=== PATIENT | female | born 1985 | race African-American/Black ===

== ENCOUNTER 2017-12-12 12:17 | Inpatient (IN) | payer OTHER ==
[~2017-12-12] VITALS: Ht 160 cm; Wt 70.3 kg
--- NOTE | 2017-12-12 12:28 | Emergency Room Report ---
History of Present Illness General Chief Complaint: Skin Rash/Abscess Source: Patient Present Illness HPI 32-year-old female presents to the emergency department complaining of multiple abscess in the bilateral groin area off and on for several months and is not responsive to multiple oral antibiotic treatments. Patient states that at one point her kidneys had decline in function due to taking Bactrim. Patient is here for surgical removal of hidradenitis lesions. Patient denies pain at this time she denies fevers, chills, nausea, vomiting, abdominal pain or . Other than transient decrease in kidney function in the past patient has no other significant past medical history. She is not currently taking blood thinning medications. Denies CP, Palpitations, LOC, AMS, dizziness, Changes in Vision, Sensation, paresthesias, or a sudden severe headache. Allergies: Coded Allergies: MORPHINE (Verified Allergy, Unknown, 12/12/17) VANCOMYCIN (Verified Allergy, Unknown, Itching, 12/12/17) Uncoded Allergies: TAPE (Allergy, Unknown, 12/12/17) Patient History Past Medical History: see triage record Past Surgical History: none Pertinent Family History: none Immunizations: UTD Reviewed Nursing Documentation: PMH: Agreed, PSxH: Agreed Nursing Documentation-PMH Past Medical History: No Stated History Review of Systems All Other Systems: negative except mentioned in HPI Physical Exam Vital Signs Date Time Temp Pulse Resp B/P (MAP) Pulse Ox O2 Delivery O2 Flow Rate FiO2 12/12/17 12:23 98.5 83 20 103/70 99 Room Air 98.4 Sp02 EP Interpretation: reviewed, normal General Appearance: no apparent distress, alert, GCS 15, non-toxic Head: normocephalic, atraumatic ENT: hearing grossly normal, normal voice Neck: full range of motion Respiratory: lungs clear, normal breath sounds, speaking full sentences Cardiovascular #1: regular rate, rhythm Gastrointestinal: non tender, soft Musculoskeletal: back normal, gait/station normal, normal range of motion, non- tender Neurologic: alert, oriented x3, responsive, motor strength/tone normal, sensory intact, speech normal, grossly normal Psychiatric: judgement/insight normal Skin: normal color, warm/dry, well hydrated, other - multiple swollen and infected ST lesions in the groin area in close proximity, no LAD. no surrounding erythema. Medical Decision Making PA Attestation Dr. Rebolledo is my supervising Physician whom patient management has been discussed with. Diagnostic Impression: Primary Impression: Hidradenitis suppurativa ER Course 32-year-old female presents to the emergency department complaining of multiple abscess in the bilateral groin area off and on for several months and is not responsive to multiple oral antibiotic treatments. Patient states that at one point her kidneys had decline in function due to taking Bactrim. Patient is here for surgical removal of hidradenitis lesions. Patient denies pain at this time she denies fevers, chills, nausea, vomiting, abdominal pain or . Other than transient decrease in kidney function in the past patient has no other significant past medical history. She is not currently taking blood thinning medications. Denies CP, Palpitations, LOC, AMS, dizziness, Changes in Vision, Sensation, paresthesias, or a sudden severe headache. Ddx considered but are not limited to cellulitis, hydradenitis Suppurativa, fracture, d/L, gout, abscess Vital signs: are WNL, pt. is afebrile H&PE are most consistent with bilateral groin hydradenitis Suppurativa requiring direct admission for surgical or IV abx management ORDERS: -Gen. preop labwork: CBC, CMP, PT/PTT, Type and Screen. : Preoperative lab work including coag panel was unremarkable and within normal limits kidney function is fine. pt. is B + - EK bpm normal sinus rhythm, no acute ST changes. ED INTERVENTIONS: -1 L IV normal saline bolus. -1250mg vancomycin IV DISPOSITION: at this time pt. will be admitted to Dr. Carlin on behalf of Dr. Carlin for hydradenitis Suppurativa. Dr. Carlin agreed to admit the pt. and to continue pt. care management. Labs Test 12/12/17 12:30 12/12/17 13:20 12/12/17 14:10 Urine Color Pale yellow Urine Appearance Clear Urine pH 7 (4.5-8.0) Urine Specific [place] 1.005 (1.005-1.035) Urine Protein Negative (NEGATIVE) Urine Glucose (UA) Negative (NEGATIVE) Urine Ketones Negative (NEGATIVE) Urine Occult Blood 5+ (NEGATIVE) Urine Nitrite Negative (NEGATIVE) Urine Bilirubin Negative (NEGATIVE) Urine Urobilinogen Normal MG/DL (0.0-1.0) Urine Leukocyte Esterase Negative (NEGATIVE) Urine RBC 5-10 /HPF (0 - 2) Urine WBC 0-2 /HPF (0 - 2) Urine Squamous Epithelial Cells Few /LPF (NONE/OCC) Urine Bacteria Few /HPF (NONE) Urine HCG, Qualitative Negative (NEGATIVE) White Blood Count 7.7 K/UL (4.8-10.8) Red Blood Count 4.71 M/UL (4.20-5.40) Hemoglobin 13.8 G/DL (12.0-16.0) Hematocrit 41.2 % (37.0-47.0) Mean Corpuscular Volume 87 FL (80-99) Mean Corpuscular Hemoglobin 29.3 PG (27.0-31.0) Mean Corpuscular Hemoglobin Concent 33.6 G/DL (32.0-36.0) Red Cell Distribution Width 11.9 % (11.6-14.8) Platelet Count 304 K/UL (150-450) Mean Platelet Volume 5.9 FL (6.5-10.1) Neutrophils (%) (Auto) 59.2 % (45.0-75.0) Lymphocytes (%) (Auto) 34.6 % (20.0-45.0) Monocytes (%) (Auto) 5.2 % (1.0-10.0) Eosinophils (%) (Auto) 0.4 % (0.0-3.0) Basophils (%) (Auto) 0.6 % (0.0-2.0) Sodium Level 138 MMOL/L (136-145) Potassium Level 3.4 MMOL/L (3.5-5.1) Chloride Level 102 MMOL/L (98-107) Carbon Dioxide Level 30 MMOL/L (21-32) Anion Gap 6 mmol/L (5-15) Blood Urea Nitrogen 11 mg/dL (7-18) Creatinine 0.6 MG/DL (0.55-1.30) Estimat Glomerular Filtration Rate > 60 mL/min (>60) Glucose Level 82 MG/DL (74-106) Calcium Level 9.1 MG/DL (8.5-10.1) Total Bilirubin 0.2 MG/DL (0.2-1.0) Aspartate Amino Transf (AST/SGOT) 14 U/L (15-37) Alanine Aminotransferase (ALT/SGPT) 20 U/L (12-78) Alkaline Phosphatase 72 U/L (46-116) Total Protein 7.6 G/DL (6.4-8.2) Albumin 3.5 G/DL (3.4-5.0) Globulin 4.1 g/dL Albumin/Globulin Ratio 0.9 (1.0-2.7) Prothrombin Time 10.5 SEC (9.30-11.50) Prothromb Time International Ratio 1.0 (0.9-1.1) Activated Partial Thromboplast Time 25 SEC (23-33) EKG Diagnostic Results Rate: normal - 60 Rhythm: NSR ST Segments: no acute changes ASA given to the pt in ED: No PA Scribe Text This Interpretation was scribed by SOPHIA Mccord. Last Vital Signs Date Time Temp Pulse Resp B/P (MAP) Pulse Ox O2 Delivery O2 Flow Rate FiO2 12/12/17 12:23 98.5 83 20 103/70 99 Room Air 98.4 Disposition: ADMITTED INPATIENT Condition: Serious Delmi Mccord Dec 12, 2017 12:28
[2017-12-12 12:48] LABS: APPEARANCE,URINE CLEAR; BILIRUBIN, URINE NEGATIVE (NEGATIVE); COLOR,URINE PALE YELLOW; GLUCOSE, URINE (UA) NEGATIVE (NEGATIVE); KETONES,URINE NEGATIVE (NEGATIVE); LEUKOCYTE ESTERASE ,URINE NEGATIVE (NEGATIVE); NITRITE,URINE NEGATIVE (NEGATIVE); PH,URINE 7 (4.5-8.0); PROTEIN,URINE NEGATIVE (NEGATIVE); UROBILINOGEN,URINE NORMAL MG/DL (0.0-1.0)
[2017-12-12 13:42] LABS: BASOPHILS % (AUTO) 0.6 % (0.0-2.0); EOSINOPHILS % (AUTO) 0.4 % (0.0-3.0); HEMATOCRIT 41.2 % (37.0-47.0); HEMOGLOBIN 13.8 G/DL (12.0-16.0); LYMPHOCYTES % (AUTO) 34.6 % (20.0-45.0); MEAN CORPUSCULAR VOLUME 87 FL (80-99); MONOCYTES % (AUTO) 5.2 % (1.0-10.0); NEUTROPHILS % (AUTO) 59.2 % (45.0-75.0); PLATELET COUNT 304 K/UL (150-450); RED BLOOD COUNT 4.71 M/UL (4.20-5.40); RED CELL DISTRIBUTION WIDTH 11.9 % (11.6-14.8); WHITE BLOOD COUNT 7.7 K/UL (4.8-10.8)
[2017-12-12 13:44] VITALS: BP 103/70
[2017-12-12] MEDS ORDERED: Miralax 17gm pkt ORAL PRN (13:45)
[2017-12-12] MEDS ORDERED: Zolpidem 5mg tab ORAL PRN (13:45)
[2017-12-12] MEDS ORDERED: NKM (13:45)
[2017-12-12 13:52] LABS: ANION GAP 6 mmol/L (5-15); BLOOD UREA NITROGEN 11 mg/dL (7-18); CALCIUM 9.1 MG/DL (8.5-10.1); CARBON DIOXIDE 30 MMOL/L (21-32); CHLORIDE 102 MMOL/L (98-107); CREATININE 0.6 MG/DL (0.55-1.30); POTASSIUM 3.4 MMOL/L (3.5-5.1); SODIUM 138 MMOL/L (136-145)
[2017-12-12 13:57] LABS: ALANINE AMINOTRANSFERASE 20 U/L (12-78); ALBUMIN 3.5 G/DL (3.4-5.0); ALBUMIN/GLOBULIN RATIO 0.9 (1.0-2.7); ALKALINE PHOSPHATASE 72 U/L (46-116); ASPARTATE AMINO TRANSFERASE 14 U/L (15-37); BILIRUBIN,TOTAL 0.2 MG/DL (0.2-1.0)
[2017-12-12] MEDS ORDERED: Vancomycin 1250mg/D5W 250ml 250 ML IVPB SCH (15:00)
[2017-12-12] MEDS ORDERED: DiphenhydrAMINE 50mg/ml Inj IVP ONE (16:15)
[2017-12-12 16:17] VITALS: BP 108/72
--- NOTE | 2017-12-12 16:28 | History and Physical ---
History of Present Illness General Date patient seen: Dec 12, 2017 Time patient seen: 16:28 Reason for Hospitalization: Abscess Present Illness HPI 32y/o female with pmh of hidradenitis suppurative who presents with b/l groin swelling/pain/redness/drainage. Pt states she has had symptoms off and on for many months but recently worsening. She has tried antibiotics without much success. She has had surgery of axillary area before which did help. Denies f/c , n/v, d/c, chest pain, SOB. At baseline pt able to ambulate several blocks and climb at least a flight of stairs. Allergies: Coded Allergies: MORPHINE (Verified Allergy, Unknown, 12/12/17) VANCOMYCIN (Verified Allergy, Unknown, Itching, 12/12/17) Uncoded Allergies: TAPE (Allergy, Unknown, 12/12/17) Medication History Scheduled No Known Medications* (NKM - No Known Medications*), 0 ., (Reported) Patient History History Provided By: Patient, Family Member, Medical Record Healthcare decision maker Resuscitation status Advanced Directive on File Past Medical/Surgical History Past Medical/Surgical History: (1) Gastric sleeve (2) Hidradenitis suppurativa (3) C-secion Family History Family History: Type 2 diabetes mellitus Social History Social History: (1) No significant social history Review of Systems Constitutional: Reports: no symptoms Eye: Reports: no symptoms ENT: Reports: no symptoms Respiratory: Reports: no symptoms Cardiovascular: Reports: no symptoms Gastrointestinal: Reports: no symptoms Genitourinary: Reports: no symptoms Musculoskeletal: Reports: no symptoms Skin: Reports: lesions Psychiatric: Reports: no symptoms Neurological: Reports: no symptoms Endocrine: Reports: no symptoms Hematologic/Lymphatic: Reports: no symptoms Physical Exam Physical Exam Narrative General: alert, cooperative, no distress, appears stated age Head: normocephalic, without obvious abnormality, atraumatic Eyes: conjunctivae/corneas clear. PERRL, EOM's intact Throat: lips, mucosa, and tongue normal. MMM Neck: supple, symmetrical, trachea midline, and no JVD Lungs: clear to auscultation bilaterally Heart: regular rate and rhythm, S1, S2 normal, no murmur, click, rub or gallop Abdomen: soft, non-tender, non-distended, bowel sounds normal Extremities: extremities normal, atraumatic, no cyanosis or edema Pulses: 2+ and symmetric Skin: +b/l groin lesions w/ edema/TTP/warmth/erythema/drainage Neurologic: grossly normal, no focal deficits Last 24 Hour Vital Signs Date Time Temp Pulse Resp B/P (MAP) Pulse Ox O2 Delivery O2 Flow Rate FiO2 12/12/17 16:17 98.4 69 17 108/72 99 Room Air 98.4 12/12/17 13:44 98.4 67 20 103/70 99 Room Air 98.4 12/12/17 12:23 98.5 83 20 103/70 99 Room Air 98.4 Laboratory Tests Test 12/12/17 12:30 12/12/17 13:20 12/12/17 14:10 Urine Color Pale yellow Urine Appearance Clear Urine pH 7 (4.5-8.0) Urine Specific [place] 1.005 (1.005-1.035) Urine Protein Negative (NEGATIVE) Urine Glucose (UA) Negative (NEGATIVE) Urine Ketones Negative (NEGATIVE) Urine Occult Blood 5+ (NEGATIVE) H Urine Nitrite Negative (NEGATIVE) Urine Bilirubin Negative (NEGATIVE) Urine Urobilinogen Normal MG/DL (0.0-1.0) Urine Leukocyte Esterase Negative (NEGATIVE) Urine RBC 5-10 /HPF (0 - 2) H Urine WBC 0-2 /HPF (0 - 2) Urine Squamous Epithelial Cells Few /LPF (NONE/OCC) Urine Bacteria Few /HPF (NONE) Urine HCG, Qualitative Negative (NEGATIVE) White Blood Count 7.7 K/UL (4.8-10.8) Red Blood Count 4.71 M/UL (4.20-5.40) Hemoglobin 13.8 G/DL (12.0-16.0) Hematocrit 41.2 % (37.0-47.0) Mean Corpuscular Volume 87 FL (80-99) Mean Corpuscular Hemoglobin 29.3 PG (27.0-31.0) Mean Corpuscular Hemoglobin Concent 33.6 G/DL (32.0-36.0) Red Cell Distribution Width 11.9 % (11.6-14.8) Platelet Count 304 K/UL (150-450) Mean Platelet Volume 5.9 FL (6.5-10.1) L Neutrophils (%) (Auto) 59.2 % (45.0-75.0) Lymphocytes (%) (Auto) 34.6 % (20.0-45.0) Monocytes (%) (Auto) 5.2 % (1.0-10.0) Eosinophils (%) (Auto) 0.4 % (0.0-3.0) Basophils (%) (Auto) 0.6 % (0.0-2.0) Sodium Level 138 MMOL/L (136-145) Potassium Level 3.4 MMOL/L (3.5-5.1) L Chloride Level 102 MMOL/L (98-107) Carbon Dioxide Level 30 MMOL/L (21-32) Anion Gap 6 mmol/L (5-15) Blood Urea Nitrogen 11 mg/dL (7-18) Creatinine 0.6 MG/DL (0.55-1.30) Estimat Glomerular Filtration Rate > 60 mL/min (>60) Glucose Level 82 MG/DL (74-106) Calcium Level 9.1 MG/DL (8.5-10.1) Total Bilirubin 0.2 MG/DL (0.2-1.0) Aspartate Amino Transf (AST/SGOT) 14 U/L (15-37) L Alanine Aminotransferase (ALT/SGPT) 20 U/L (12-78) Alkaline Phosphatase 72 U/L (46-116) Total Protein 7.6 G/DL (6.4-8.2) Albumin 3.5 G/DL (3.4-5.0) Globulin 4.1 g/dL Albumin/Globulin Ratio 0.9 (1.0-2.7) L Prothrombin Time 10.5 SEC (9.30-11.50) Prothromb Time International Ratio 1.0 (0.9-1.1) Activated Partial Thromboplast Time 25 SEC (23-33) Height (Feet): 5 Height (Inches): 3.00 Weight (Pounds): 155 Medications Current Medications Medications (Trade) Dose Ordered Sig/Cait Route PRN Reason Start Time Stop Time Status Last Admin Dose Admin Acetaminophen (Tylenol) 650 mg Q4H PRN ORAL Mild Pain (Pain Scale 1-3) 12/12/17 13:45 01/11/18 13:44 Acetaminophen (Tylenol) 650 mg Q4H PRN ORAL fever 12/12/17 13:45 01/11/18 13:44 Bisacodyl (Dulcolax) 10 mg HSPRN PRN RECTAL Constipation 12/12/17 13:45 01/11/18 13:44 Dextrose (Dextrose 50%) STAT PRN IV Hypoglycemia 12/12/17 13:45 01/11/18 13:44 Dextrose/Sodium Chloride 1,000 ml @ 75 mls/hr [id number] IV 12/13/17 14:00 01/12/18 13:59 Diphenhydramine HCl (Benadryl) 25 mg Q6H PRN ORAL Itching/Pruritis 12/12/17 13:45 01/11/18 13:44 Docusate Sodium (Colace) 100 mg EVERY 12 HOURS ORAL 12/12/17 21:00 01/11/18 20:59 Ondansetron HCl (Zofran) 4 mg Q6H PRN IVP Nausea & Vomiting 12/12/17 13:45 01/11/18 13:44 Polyethylene Glycol (Miralax) 17 gm HSPRN PRN ORAL Constipation 12/12/17 13:45 01/11/18 13:44 Vancomycin HCl/ Dextrose 250 ml @ 166.667 mls/hr Q24H IVPB 12/12/17 15:00 12/17/17 14:59 12/12/17 15:13 Zolpidem Tartrate (Ambien) 5 mg HSPRN PRN ORAL Insomnia 12/12/17 13:45 12/19/17 13:44 Objective Narrative EKG and CXR wnl Assessment/Plan Problem List: (1) Abscess Assessment & Plan: of groin ICD Codes: L02.91 - Cutaneous abscess, unspecified SNOMED: 707594029 (2) Hidradenitis suppurativa ICD Codes: L73.2 - Hidradenitis suppurativa SNOMED: [id number] Status: stable Assessment/Plan Admit inpt Plastic surgery consulted Empiric IV antibiotics IVFs Wound care Pain control, bowel regimen Supportive care If patient is required to have surgery, based on the patient's medical history, and other available ancillary data, the patient is a LOW risk for an INTERMEDIATE risk procedure. Per the most recent ACC/AHA guidelines, the patient does not need any further cardiopulmonary testing prior to the procedure and there do not appear to be any clear medical contraindications to proceeding with the proposed procedure. DVT ppx: SCDs FULL CODE D/w pt/family, RN, surgery regarding mgmt and dispo Anthony Lopez M.D. Dec 12, 2017 16:28
[2017-12-12] MEDS ORDERED: LORazepam 0.5mg tab ORAL PRN (16:45)
[2017-12-12] MEDS ORDERED: LORazepam Inj 2mg/ml 1ml IV PRN (16:45)
[2017-12-12] MEDS: ceFAZolin sod 1 GM in NS 55 ML IVPB SCH (18:28)
[2017-12-12] MEDS: D5 1/2NS w/KCl 20mEq 1,000 ML IV SCH (18:29)
[2017-12-12 20:00] VITALS: BP 89/64
[2017-12-12] MEDS: Docusate 100mg cap ORAL SCH (21:24)
[2017-12-12] MEDS ORDERED: ceFAZolin 1gm/50ml Premix 50 ML IV SCH (22:00)
[2017-12-13] VITALS (15 sets, daily range): BP systolic 95–121; BP diastolic 56–70
[2017-12-13] MEDS: ceFAZolin sod 1 GM in NS 55 ML IVPB SCH ×3 (02:10→17:53)
[2017-12-13] MEDS: Docusate 100mg cap ORAL SCH ×2 (08:13→17:53)
[2017-12-13] MEDS: D5 1/2NS w/KCl 20mEq 1,000 ML IV SCH (11:32)
--- NOTE | 2017-12-13 11:48 | Pre-Procedure Note/Attestation ---
Pre-Procedure Note/Attestation Complete Prior to Procedure Planned Procedure: bilateral Procedure Narrative: Bilateral vulvar debridement and reconstruction Attestation I attest that I discussed the nature of the procedure; its benefits; risks and complications; and alternatives (and the risks and benefits of such alternatives ), prior to the procedure, with the patient (or the patient's legal guest service representative). I attest that, if there was a reasonable possibility of needing a blood transfusion, the patient (or the patient's legal guest service representative) was given the [facility] standardized written summary, pursuant to the [place] Blood Safety Act ([place] Health and Safety Code # 1645, as amended). I attest that I re-evaluated the patient just prior to the surgery and that there has been no change in the patient's H&P, except as documented below: BERNARDA AVALOS Dec 13, 2017 11:47
[2017-12-13] MEDS ORDERED: Bacitracin 50000 Units Vial ONE (11:57)
[2017-12-13] MEDS ORDERED: Propofol 200mg/20ml IV ONE (11:57)
[2017-12-13] MEDS ORDERED: PCA HYDROmorphone 1mg/ml 30 ML IV PRN (12:00)
[2017-12-13] MEDS ORDERED: Zolpidem 5mg tab ORAL PRN (12:00)
[2017-12-13] MEDS ORDERED: Rate Change PCA 1 Each MISC PRN (12:00)
[2017-12-13] MEDS ORDERED: Lidocaine 1% 10mg/ml/Epi 0.005mg/ml 30ml vial INJ ONE (13:00)
[2017-12-13] MEDS ORDERED: LR 1000ml 1,000 ML IVLG SCH (13:08)
--- NOTE | 2017-12-13 13:08 | Anethesia Preoperative Eval ---
Anesthesia Pre-op PMH/ROS General Date of Evaluation: Dec 13, 2017 Time of Evaluation: 12:20 Anesthesiologist: Fadi ASA Score: ASA 2 Mallampati Score Class I : Soft palate, uvula, fauces, pillars visible Class II: Soft palate, uvula, fauces visible Class III: Soft palate, base of uvula visible Class IV: Only hard plate visible Mallampati Classification: Class II Surgeon: Petros Diagnosis: Recurrent HS Surgical Procedure: Excision of groin HS Anesthesia History: none Family History: no anesthesia problems Allergies: Coded Allergies: MORPHINE (Verified Allergy, Unknown, 12/12/17) VANCOMYCIN (Verified Allergy, Unknown, Itching, 12/12/17) Uncoded Allergies: TAPE (Allergy, Unknown, 12/12/17) Past Medical History Cardiovascular: Denies: HTN, CAD, MA, valve dz, arrhythmia, other Pulmonary: Denies: asthma, COPD, DAVID, other Gastrointestinal/Genitourinary: Reports: GERD, Denies: CRI, ESRD, other Neurologic/Psychiatric: Reports: depression/anxiety, Denies: dementia, CVA, TIA, other Endocrine: Denies: DM, hypothyroidism, steroids, other HEENT: Denies: cataract (L), cataract (R), glaucoma, KEWEENAW (L), KEWEENAW (R), other Hematology/Immune: Denies: anemia, DVT, bleeding disorder, other Musculoskeletal/Integumentary: Reports: other - recurrent HS, Denies: OA, RA, DJD, DDD, edema Other: other - S/p Gastric bypass significant weight loss PMH Narrative: as above PSxH Narrative: Surgical treatment of HS Gastric sleeve C section x 2 abdominoplasty Anesthesia Pre-op Phys. Exam Physician Exam Last Vital Signs Date Time Temp Pulse Resp B/P (MAP) Pulse Ox O2 Delivery O2 Flow Rate FiO2 12/13/17 08:00 98.2 71 20 114/64 99 Room Air 98.2 Constitutional: NAD Neurologic: CN 2-12 intact, other Cardiovascular: RRR, no M/R/G Respiratory: CTA Gastrointestinal: S/NT/ND Airway Exam Mallampati Score: Class II MO: full Neck: flexible ROM: full Teeth: intact Dentures: no upper, no lower Anesthesia Pre-op A/P Labs Hematology Test 12/12/17 13:20 White Blood Count 7.7 K/UL (4.8-10.8) Red Blood Count 4.71 M/UL (4.20-5.40) Hemoglobin 13.8 G/DL (12.0-16.0) Hematocrit 41.2 % (37.0-47.0) Mean Corpuscular Volume 87 FL (80-99) Mean Corpuscular Hemoglobin 29.3 PG (27.0-31.0) Mean Corpuscular Hemoglobin Concent 33.6 G/DL (32.0-36.0) Red Cell Distribution Width 11.9 % (11.6-14.8) Platelet Count 304 K/UL (150-450) Mean Platelet Volume 5.9 FL (6.5-10.1) L Neutrophils (%) (Auto) 59.2 % (45.0-75.0) Lymphocytes (%) (Auto) 34.6 % (20.0-45.0) Monocytes (%) (Auto) 5.2 % (1.0-10.0) Eosinophils (%) (Auto) 0.4 % (0.0-3.0) Basophils (%) (Auto) 0.6 % (0.0-2.0) Coagulation Test 12/12/17 14:10 Prothrombin Time 10.5 SEC (9.30-11.50) Prothromb Time International Ratio 1.0 (0.9-1.1) Activated Partial Thromboplast Time 25 SEC (23-33) Chemistry Test 12/12/17 13:20 Sodium Level 138 MMOL/L (136-145) Potassium Level 3.4 MMOL/L (3.5-5.1) L Chloride Level 102 MMOL/L (98-107) Carbon Dioxide Level 30 MMOL/L (21-32) Anion Gap 6 mmol/L (5-15) Blood Urea Nitrogen 11 mg/dL (7-18) Creatinine 0.6 MG/DL (0.55-1.30) Estimat Glomerular Filtration Rate > 60 mL/min (>60) Glucose Level 82 MG/DL (74-106) Calcium Level 9.1 MG/DL (8.5-10.1) Total Bilirubin 0.2 MG/DL (0.2-1.0) Aspartate Amino Transf (AST/SGOT) 14 U/L (15-37) L Alanine Aminotransferase (ALT/SGPT) 20 U/L (12-78) Alkaline Phosphatase 72 U/L (46-116) Total Protein 7.6 G/DL (6.4-8.2) Albumin 3.5 G/DL (3.4-5.0) Globulin 4.1 g/dL Albumin/Globulin Ratio 0.9 (1.0-2.7) L Risk Assessment & Plan Assessment: ASA 2 Plan: GA with LMA Status Change Before Surgery: No Pre-Antibiotics Drug: Ancef 1gr. Given Within 1 Hr of Incision: Yes Time Given: 12:50 NAVA TALBERT M.D. Dec 13, 2017 13:08
[2017-12-13] MEDS ORDERED: DiphenhydrAMINE 50mg/ml Inj IVP PRN (13:15)
[2017-12-13] MEDS ORDERED: Meperidine 50mg/ml Inj(FOR RIGORS ONLY) IV PRN (13:15)
[2017-12-13] MEDS ORDERED: Ketorolac 30mg Inj IV PRN (13:15)
[2017-12-13] MEDS ORDERED: Hydromorphone 0.5mg/0.5ml inj IVP PRN (13:15)
[2017-12-13] MEDS ORDERED: Midazolam 2mg/2ml Inj IVP PRN (13:15)
--- NOTE | 2017-12-13 13:30 | Operative Note - PDOC ---
Operative Note Operative Note Pre-op Diagnosis: Bilateral vulvar HS Procedure: Bilateral vulvar tissue excision and reconstruction Post-op Diagnosis: same as pre-op Surgeon: Petros Breakfast Bar Attendant: Valerie Anesthesia: general Specimen: yes Complications: yes Drains: none Implant(s) used?: No BERNARDA AVALOS Dec 13, 2017 13:29
--- NOTE | 2017-12-13 13:53 | Immediate Post-Op Evaluation ---
Immediate Post-Op Evalulation Immediate Post-Op Evalulation Procedure: Excision and closure of groin HS Date of Evaluation: Dec 13, 2017 Time of Evaluation: 13:52 IV Fluids: 1000 Blood Products: none Estimated Blood Loss: >50 Urinary Output: 300 Blood Pressure Systolic: 104 Blood Pressure Diastolic: 56 Pulse Rate: 72 Respiratory Rate: 20 O2 Sat by Pulse Oximetry: 99 Temperature (Fahrenheit): 97.6 Pain Score (1-10): 2 Nausea: No Vomiting: No Complications none Patient Status: reacts Hydration Status: adequate NAVA TALBERT M.D. Dec 13, 2017 13:53
--- NOTE | 2017-12-13 13:56 | General Progress Note ---
Assessment/Plan Problem List: (1) Abscess Assessment & Plan: of groin ICD Codes: L02.91 - Cutaneous abscess, unspecified SNOMED: [id number] (2) Bilateral vulvar hidradenitis (3) Hidradenitis suppurativa ICD Codes: L73.2 - Hidradenitis suppurativa SNOMED: [id number] Status: stable Assessment/Plan Appreciate surgery rec's s/p bilateral vulvar tissue excision and reconstruction on 12/13/17 Wound care per surgery Cont empiric IV antibiotics Post operative recommendations include: - encourage mobilization/ambulation - encourage incentive spirometry to optimize pulmonary hygiene - DVT/GI prophylaxis as appropriate--SCDs, HSQ - ctm CBC and hemodynamics - ctm electrolytes, adjust/replete prn - pain control, supportive care, bowel regimen FULL CODE A total of 34min of extra time was spent on this encounter in addition to normal encounter time for care/coordination and counseling. D/w pt/family, RN, SW/CM, surgery regarding mgmt and dispo. D/w surgery re periop and postop mgmt Subjective Date patient seen: Dec 13, 2017 Time patient seen: 13:56 ROS Limited/Unobtainable: No Constitutional: Reports: no symptoms HEENT: Reports: no symptoms Cardiovascular: Reports: no symptoms Respiratory: Reports: no symptoms Gastrointestinal/Abdominal: Reports: nausea Genitourinary: Reports: no symptoms Neurologic/Psychiatric: Reports: no symptoms Endocrine: Reports: no symptoms Hematologic/Lymphatic: Reports: no symptoms Allergies: Coded Allergies: MORPHINE (Verified Allergy, Unknown, 12/12/17) VANCOMYCIN (Verified Allergy, Unknown, Itching, 12/12/17) Uncoded Allergies: TAPE (Allergy, Unknown, 12/12/17) Subjective No acute o/n events s/p bilateral vulvar tissue excision and reconstruction today POD#0 Pain controlled. Denies f/c, emesis, d/c, chest pain, SOB Objective Last 24 Hour Vital Signs Date Time Temp Pulse Resp B/P (MAP) Pulse Ox O2 Delivery O2 Flow Rate FiO2 12/13/17 13:53 207.7 72 20 99 12/13/17 12:00 98.2 74 20 112/60 99 Room Air 98.2 12/13/17 08:00 98.2 71 20 114/64 99 Room Air 98.2 12/13/17 04:00 97.9 75 18 107/70 100 Room Air 97.9 12/12/17 20:00 98.1 65 18 89/64 98 Room Air 98.1 12/12/17 16:47 98.4 69 17 108/72 99 Room Air 98.4 12/12/17 16:17 98.4 69 17 108/72 99 Room Air 98.4 Intake and Output 12/12/17 12/13/17 19:00 07:00 Intake Total 430 ml 825 ml Balance 430 ml 825 ml Intake Oral 400 ml IV Total 30 ml 825 ml # Voids 3 2 Laboratory Tests 12/12/17 14:10: Prothrombin Time 10.5, Prothromb Time International Ratio 1.0, Activated Partial Thromboplast Time 25 Height (Feet): 5 Height (Inches): 3.00 Weight (Pounds): 155 Objective General: alert, cooperative, no distress, appears stated age Head: normocephalic, without obvious abnormality, atraumatic Eyes: conjunctivae/corneas clear. PERRL, EOM's intact Throat: lips, mucosa, and tongue normal. MMM Neck: supple, symmetrical, trachea midline, and no JVD Lungs: clear to auscultation bilaterally Heart: regular rate and rhythm, S1, S2 normal, no murmur, click, rub or gallop Abdomen: soft, non-tender, non-distended, bowel sounds normal Extremities: extremities normal, atraumatic, no cyanosis or edema Pulses: 2+ and symmetric Skin: dressings c/d/i Neurologic: grossly normal, no focal deficits Anthony Lopez M.D. Dec 13, 2017 13:56
[2017-12-13] MEDS ORDERED: D5 1/2NS 1,000 ML IV SCH (14:00)
[2017-12-13] MEDS ORDERED: Surgicel 4in x 8in TOPIC ONE (14:01)
[2017-12-13] MEDS ORDERED: PCA Education Pamphlet MISC ONE (14:37)
--- NOTE | 2017-12-13 16:59 | Cardiology Report ---
APPROVED REPORT EKG Measurement Heart [id number] Normal sinus rhythm Normal ECG
[2017-12-13] MEDS: PCA shift volume MISC SCH (19:19)
--- NOTE | 2017-12-13 19:46 | Consultation ---
DATE OF CONSULTATION: 12/13/2017 CONSULTING PHYSICIAN: Birdie Morrell M.D. REASON FOR CONSULTATION: Consultation is for bilateral vulvar hidradenitis suppurativa. HISTORY OF PRESENT ILLNESS: This is a 32-year-old female admitted for bilateral vulvar abscesses secondary to advanced hidradenitis suppurativa. She has tenderness and drainage from these areas. She was admitted by Dr. Dora Carlin. PAST MEDICAL HISTORY: Significant for hidradenitis suppurativa and morbid obesity. PAST SURGICAL HISTORY: Significant for gastric bypass surgery and abdominoplasty. PHYSICAL EXAMINATION: GENERAL: The patient is alert and oriented x3. HEART: Regular rate and rhythm. ABDOMEN: Soft, nontender, and nondistended. EXTREMITIES: Examination of her perineal region reveals evidence of advanced hidradenitis suppurativa in her bilateral vulva with right worse than left with tenderness in those regions. ASSESSMENT AND PLAN: This is a 32-year-old female with vulvar hidradenitis suppurativa. She will undergo radical excision of these tissues with reconstruction. She understands our plan and agrees to proceed. Birdie Morrell M.D. DR: ASHLEY JOB#: [id number] CC:
--- NOTE | 2017-12-13 20:16 | Operative Note - Dictated ---
DATE OF OPERATION: 12/13/2017 PREOPERATIVE DIAGNOSIS: Bilateral vulvar hidradenitis suppurativa. POSTOPERATIVE DIAGNOSIS: Bilateral vulvar hidradenitis suppurativa. PROCEDURES: 1. Radical excision of right vulvar hidradenitis suppurativa. 2. Radical excision of left vulvar hidradenitis suppurativa. 3. Complex closure of left vulvar wound. 4. Elevation of lateral vulvar skin flap for closure of right vulvar wound. SURGEON: Birdie Morrell M.D. CHIEF [employer]IT FORESTER: Greg Padilla M.D. ANESTHESIA: General. COMPLICATIONS: None. SPECIMEN: Bilateral vulvar tissue. DISPOSITION: Stable to the recovery room. INDICATIONS FOR SURGERY: This is a 32-year-old female with a history of advanced hidradenitis suppurativa affecting the perineal region who is a candidate for radical excision and reconstruction. She understood the risks and benefits of surgery and agrees to proceed. DETAILS OF THE OPERATION: The patient was brought to the operating room and laid in the lithotomy position on the operating table. Her perineum was prepped and draped in a sterile and usual fashion. Her disease was much more pronounced in the right side than the left and there was significant amount of abscesses throughout the length of the vulva on the right side. A marking pen was used to delineate the base where the healthy tissue appeared to be below the infection. We then began on the left side which was the less severe side. A #10 blade was used to make the incision along the draper, all the way down to the level of healthy fascia. In a similar fashion, the contralateral vulva was addressed by using a #10 blade and then electrocautery to radically excise the tissue and on this side it was quite deep. In terms of the involvement, we had come down approximately 2 cm below skin level to get to healthy tissue and this was then excised on block. The left-side of the wound could be closed with complex closure, however, right side required elevation of lateral vulvar skin flap as such lateral vulvar skin flap was elevated with undermining performed to release the tissue superiorly and inferiorly with blood supply coming from the internal pudendal artery. With the skin flap fully elevated and raised, the wound was then copiously irrigated with pulse lavage on the right side and the flap was then inset medially using 2-0 Vicryl sutures and a 3-0 Monocryl were used to close the skin. For the left vulvar tissue, we were able to perform a complex closure following debridement of skin edges using 3-0 Vicryl and a 3-0 Monocryl as well. Dermabond was applied to the skin and the patient tolerated the procedure well. There were no complications. Birdie Morrell M.D. DR: ASHLEY JOB#: [id number] CC:
[2017-12-13] MEDS: Heparin 5000 units/ml inj SUBQ SCH (21:20)
[2017-12-14] MEDS: ceFAZolin sod 1 GM in NS 55 ML IVPB SCH ×2 (02:07→10:26)
[2017-12-14] MEDS: D5 1/2NS w/KCl 20mEq 1,000 ML IV SCH (02:07)
[2017-12-14 04:00] VITALS: BP 98/63
[2017-12-14] MEDS: PCA shift volume MISC SCH (07:22)
[2017-12-14 08:00] VITALS: BP 108/73
--- NOTE | 2017-12-14 08:04 | 48 Hour Post Anesthesia Eval ---
Post Anesthesia Evaluation Procedure: Excision and closure of groin HS Date of Evaluation: Dec 14, 2017 Time of Evaluation: 06:50 Blood Pressure Systolic: 98 0: 63 Pulse Rate: 73 Respiratory Rate: 16 Temperature (Fahrenheit): 98 O2 Sat by Pulse Oximetry: 98 Airway: patent Nausea: No Vomiting: No Pain Intensity: 1 Hydration Status: adequate Cardiopulmonary Status: at baseline Mental Status/LOC: patient returned to baseline Post-Anesthesia Complications: 0 Follow-up care needed: N/A - further carre as per primary team CLAUDIA PLUNKETT M.D. Dec 14, 2017 08:04
[2017-12-14] MEDS: Docusate 100mg cap ORAL SCH (08:31)
[2017-12-14] MEDS: Heparin 5000 units/ml inj SUBQ SCH (08:35)
--- NOTE | 2017-12-14 08:38 | General Progress Note ---
Progress Note Progress Note Pt seen and examined. POD# 1 and doing well. Wounds are clean and dressings dry. Plan for dc in . BERNARDA Martini MD Dec 14, 2017 08:38
[2017-12-14 12:00] VITALS: BP 104/60
[2017-12-14] MEDS ORDERED: KEFLEX500 MG ORAL (12:30)
[2017-12-14] MEDS ORDERED: NORCO 10-325 T1 EACH ORAL (14:10)
[2017-12-15] MEDS ORDERED: Ketorolac 30mg Inj ONE (08:00)
[2017-12-15] MEDS ORDERED: Sterile Water Irrig 1000ml IRRIG ONE (08:00)
[2017-12-15] MEDS ORDERED: NS Irrig 1000ml ONE (08:00)
[2017-12-15] MEDS ORDERED: LR 1000ml ONE (08:00)
[2017-12-15] MEDS ORDERED: fentaNYL 100 mcg/2 mL IV ONE (08:00)
[2017-12-15] MEDS ORDERED: Propofol 200mg/20ml IV ONE (08:00)
[2017-12-15] MEDS ORDERED: Midazolam 2mg/2ml Inj ONE (08:00)
--- NOTE | 2017-12-19 09:00 | Discharge Summary ---
Discharge Summary Hospital Course Date of Admission Dec 12, 2017 at 13:26 Date of Discharge Dec 14, 2017 at 14:57 Admitting Diagnosis Abscess Reason for Hospitalization: Abscess HPI 32y/o female with pmh of hidradenitis suppurative who presents with b/l groin swelling/pain/redness/drainage. Pt states she has had symptoms off and on for many months but recently worsening. She has tried antibiotics without much success. She has had surgery of axillary area before which did help. Denies f/c , n/v, d/c, chest pain, SOB. At baseline pt able to ambulate several blocks and climb at least a flight of stairs. Consultations Plastic surgery Procedures Bilateral vulvar tissue excision and reconstruction on 12/13/17 Hospital Course Pt was admitted started on IV antibiotics. She was seen by plastic surgery and underwent s/p bilateral vulvar tissue excision and reconstruction on 12/13/17. Pt tolerated procedure well. Once pain controlled and wounds stable, she was discharged home with oral antibiotics and pain medications. Discharge Medications New Medications: Cephalexin* (Keflex*) 500 Mg Capsule 500 MG ORAL Q6H for 7 Days, #28 CAP 0 Refills Continued Medications: Hydrocodone Bit/Acetaminophen 10-325* ([place] 10-325*) 1 Each Tablet 1 TAB ORAL Q4H PRN for For Pain, #40 TAB 0 Refills (This prescription has been renewed) PRN PAIN No Known Medications* (NKM - No Known Medications*) . 0 ., 0 Refills (This prescription has been renewed) Discharge Condition Upon Discharge: stable Discharge Disposition Patient was discharged to Home (01) Discharge Diagnoses: (1) Abscess (2) Bilateral vulvar hidradenitis (3) Hypokalemia (4) Hidradenitis suppurativa Anthony Lopez M.D. Dec 19, 2017 09:00
== END 2017-12-14 14:57 | disposition home or self-care (01) | DRG 575 ==
LOC: EMR 12:54 → 3E 13:26 → EDBEDREQ 16:41
PROC: 0JXC3ZC Transfer Pelvic Region Subcutaneous Tissue and Fascia with Skin, Subcutaneous Tissue and Fascia, Percutaneous Approach (ICD-10-PCS; principal; 2017-12-13 13:30)
PROC: 0JBC3ZZ Excision of Pelvic Region Subcutaneous Tissue and Fascia, Percutaneous Approach (ICD-10-PCS; principal; 2017-12-13 13:30)
DX: L02.214 Cutaneous abscess of groin (principal); E87.6 Hypokalemia; L73.2 Hidradenitis suppurativa
CPT/HCPCS: 36415; 80053; 81003; 81025; 85025; 85610; 85730; 86850; 86900; 86901; 93005; 94003; 94150; 99285; J2250; J2405